=== PATIENT | male | born 1930 | race Caucasian/White ===

== ENCOUNTER 2017-04-02 16:21 | Emergency (ER) | payer OTHER, MEDICARE ==
[~2017-04-02 16:21] MED LIST: ALENDRONATE SOD70 M1 PO; ATOXIMETIN-B1 CAP PO; BACO TOP; BACTRIM1 TAB PO; BUPROPION75 MG PO; CELEXA10 MG PO; CITALOPRAM HYDR10 M1 PO; DIO80 PO; DIOVAN320 MG PO; ELITE MAGNESIUM1 TAB PO; FINASTERIDE5 M1 PO; FLAX SEED OIL1000 M1 PO; FLO4 PO; GLIPIZIDE ER10 MG PO; GLIPIZIDE10 MG PO; GLUCOSAMINE500 M2 PO; HIBICLENS118 ML TOP; HYDROCHLOROTH12.5 MG PO; LAC PO; LEVOFLOXACIN750 M1 PO; LOP600 PO; MAC100 PO; MACROBID100 MG PO; MACRODANTIN100 MG PO; NOR10 PO; OMEGA 3 120 MG-1 CAP PO; SIMVASTATIN20 M1 PO; STOOL SOFTENER100 M1 PO; TRE400 PO; TYLENOL ES500 MG PO; VYTORIN 10 MG-21 TAB PO; VYTORIN1 TA3 PO; [UNRECOGNIZED DRUG - OTHER] PO
[2017-04-02 17:42] LABS: BASOPHIL % 0.1 % (0-2); PLATELET COUNT 247 x10^3mcL (130-400); RED CELL DISTRIBUTION WIDTH 14.1 % (11.5-14.5)
[2017-04-02 17:52] LABS: CALCIUM 8.4 mg/dL (8.5-10.1); CARBON DIOXIDE 25.4 mmol/L (21-32); CHLORIDE SERUM 106 mmol/L (98-107); CREATININE SERUM 1.6 mg/dL (0.7-1.3); GLUCOSE SERUM 130 mg/dL (74-106); POTASSIUM SERUM 5.2 mmol/L (3.5-5.1); SODIUM SERUM 140 mmol/L (136-145)
[2017-04-02 17:53] LABS: ALKALINE PHOSPHATASE 65 U/L (46-116); ALT/SGPT 18 U/L (16-63); AST/SGOT 22 U/L (15-37); BILIRUBIN TOTAL 0.2 mg/dL (0.20-1.00); TOTAL PROTEIN, SERUM 6.3 g/dL (6.4-8.2)
[2017-04-02 17:56] LABS: ALBUMIN 2.9 g/dL (3.4-5.0); CHOLESTEROL 131 mg/dL (<200)
[2017-04-02 19:05] VITALS: BP 136/74
== END 2017-04-02 19:05 | disposition home or self-care (01) ==
LOC: ED 16:21
PROVIDERS: Specialist
DX: R53.1 Weakness (principal); N18.9 Chronic kidney disease, unspecified; E87.5 Hyperkalemia; M19.90 Unspecified osteoarthritis, unspecified site; E78.5 Hyperlipidemia, unspecified; M81.0 Age-related osteoporosis without current pathological fracture; Z88.0 Allergy status to penicillin
CPT/HCPCS: 83880; G0480; J7040; Q0092

== ENCOUNTER 2017-04-04 06:31 | Inpatient (IN) | payer OTHER, MEDICARE ==
[~2017-04-04] VITALS: Ht 177.8 cm; Wt 70.5 kg
[2017-04-04 07:35] LABS: BASOPHIL % 0.3 % (0-2); PLATELET COUNT 246 x10^3mcL (130-400); RED CELL DISTRIBUTION WIDTH 13.6 % (11.5-14.5)
[2017-04-04 07:59] LABS: CALCIUM 8.9 mg/dL (8.5-10.1); CARBON DIOXIDE 27.1 mmol/L (21-32); CHLORIDE SERUM 109 mmol/L (98-107); CREATININE SERUM 1.5 mg/dL (0.7-1.3); GLUCOSE SERUM 99 mg/dL (74-106); POTASSIUM SERUM 5.4 mmol/L (3.5-5.1); SODIUM SERUM 143 mmol/L (136-145)
[2017-04-04 08:13] LABS: ALKALINE PHOSPHATASE 60 U/L (46-116); ALT/SGPT 26 U/L (16-63); AST/SGOT 24 U/L (15-37); BILIRUBIN TOTAL 0.36 mg/dL (0.20-1.00); C REACTIVE PROTEIN 0.6 mg/dL (<=0.9); TOTAL PROTEIN, SERUM 6.8 g/dL (6.4-8.2)
[2017-04-04 08:15] LABS: FREE T4 0.94 ng/dL (0.76-1.46); FREE THYROXINE INDEX 2.2 ug/dL (1.4-4.5); T4(THYROXINE) 6.3 ug/dL (4.7-13.3)
[2017-04-04 08:18] LABS: CK-MB 1.8 ng/mL (0-3.6)
[2017-04-04 08:19] LABS: ALBUMIN 3.2 g/dL (3.4-5.0)
[2017-04-04 08:19] LABS: microscopic required? YES; urine erythrocyte 3+ (NEGATIVE)
[2017-04-04 08:27] LABS: AMPHETAMINE QUAL UR NONE DETECTED (NEG <=1000)
[2017-04-04 08:48] VITALS: BP 148/57
[2017-04-04 08:50] LABS: PHOSPHOROUS 2.8 mg/dL (2.5-4.9)
[2017-04-04 08:53] LABS: CHOLESTEROL/HDL RATIO 3.2; MAGNESIUM 1.8 mg/dL (1.8-2.4)
[2017-04-04 09:19] LABS: T3 TOTAL 0.89 ng/mL
[2017-04-04 10:58] LABS: ERYTHROCYTE SED RATE 41 mm/hr (0-20)
[2017-04-04 13:01] VITALS: BP 122/58
[2017-04-04 16:20] VITALS: BP 105/41
[2017-04-04 19:45] VITALS: BP 107/72
[2017-04-05 05:59] VITALS: BP 144/52
[2017-04-05 07:15] LABS: BASOPHIL % 0.4 % (0-2); PLATELET COUNT 269 x10^3mcL (130-400); RED CELL DISTRIBUTION WIDTH 14.4 % (11.5-14.5)
[2017-04-05 07:20] LABS: CALCIUM 8.9 mg/dL (8.5-10.1); CARBON DIOXIDE 27.9 mmol/L (21-32); CHLORIDE SERUM 108 mmol/L (98-107); CREATININE SERUM 1.6 mg/dL (0.7-1.3); GLUCOSE SERUM 99 mg/dL (74-106); SODIUM SERUM 143 mmol/L (136-145)
[2017-04-05 08:24] LABS: POTASSIUM SERUM 6.1 mmol/L (3.5-5.1)
[2017-04-05 11:17] VITALS: BP 124/54
[2017-04-05 13:19] VITALS: BP 107/45
[2017-04-05 18:36] VITALS: BP 107/45
[2017-04-05 18:45] VITALS: BP 135/59
[2017-04-05 19:44] VITALS: BP 106/52
[2017-04-06 05:57] LABS: BASOPHIL % 0.3 % (0-2); PLATELET COUNT 201 x10^3mcL (130-400)
[2017-04-06 06:07] VITALS: BP 118/52
[2017-04-06 06:17] LABS: CARBON DIOXIDE 22.7 mmol/L (21-32); CHLORIDE SERUM 110 mmol/L (98-107); CREATININE SERUM 1.3 mg/dL (0.7-1.3); GLUCOSE SERUM 78 mg/dL (74-106); MAGNESIUM 1.4 mg/dL (1.8-2.4); PHOSPHOROUS 3.8 mg/dL (2.5-4.9); POTASSIUM SERUM 4.4 mmol/L (3.5-5.1); SODIUM SERUM 142 mmol/L (136-145)
[2017-04-06 10:34] VITALS: BP 123/62
[2017-04-06] MEDS ORDERED: BACTRIM1 TAB PO (10:59)
[2017-04-06 13:34] VITALS: BP 125/60
[2017-04-06 14:32] VITALS: BP 125/60
== END 2017-04-06 15:35 | disposition home health service (06) | DRG 725 ==
LOC: ED 06:31 → DU 07:54 → MU 18:51 → DU 20:49
PROVIDERS: Specialist; ADMIT Family Medicine
DX: N40.1 Benign prostatic hyperplasia with lower urinary tract symptoms (principal); N17.0 Acute kidney failure with tubular necrosis; N13.8 Other obstructive and reflux uropathy; N39.0 Urinary tract infection, site not specified; I42.9 Cardiomyopathy, unspecified; E44.0 Moderate protein-calorie malnutrition; E11.65 Type 2 diabetes mellitus with hyperglycemia; K21.9 Gastro-esophageal reflux disease without esophagitis; F32.9 Major depressive disorder, single episode, unspecified; D64.9 Anemia, unspecified; M19.90 Unspecified osteoarthritis, unspecified site; E87.5 Hyperkalemia; E78.5 Hyperlipidemia, unspecified; N28.1 Cyst of kidney, acquired; Z68.24 Body mass index [BMI] 24.0-24.9, adult; M81.0 Age-related osteoporosis without current pathological fracture
CPT/HCPCS: 36600; 80307; 82962; 83880; 84439; J0696; J3475; J7030; Q0092

== ENCOUNTER 2017-04-23 14:05 | Emergency (ER) | payer OTHER, MEDICARE ==
[2017-04-23 16:33] LABS: CALCIUM 8.6 mg/dL (8.5-10.1); CHLORIDE SERUM 108 mmol/L (98-107); CREATININE SERUM 1.5 mg/dL (0.7-1.3); GLUCOSE SERUM 156 mg/dL (74-106); SODIUM SERUM 140 mmol/L (136-145)
[2017-04-23 16:39] LABS: POTASSIUM SERUM 5.8 mmol/L (3.5-5.1)
[2017-04-23 17:08] VITALS: BP 130/71
== END 2017-04-23 17:08 | disposition home or self-care (01) ==
LOC: ED 14:05
PROVIDERS: Emergency Medicine
DX: R31.9 Hematuria, unspecified (principal); E87.5 Hyperkalemia; I10 Essential (primary) hypertension; E11.9 Type 2 diabetes mellitus without complications; Z88.0 Allergy status to penicillin; Z79.899 Other long term (current) drug therapy

== ENCOUNTER 2017-05-02 04:50 | Inpatient (IN) | payer OTHER, MEDICARE ==
[~2017-05-02] VITALS: Ht 177.8 cm; Wt 81.6 kg
--- NOTE | 2017-05-02 05:02 | NUR ---
PT BIBA FOR LOWER ABD PAIN; PER MEDIC PT HAS CLARKE CATH AND HAS BEEN "LEAKY." MEDIC REPORTS PT HAS BEEN WEAK AND UNABLE TO WALK DUE TO WEAKNESS. PT HAS HX OF DM; BS CHECK ON SCENE WAS 141. PT AWAKE AND ALERT; RESP E/U; NAD NOTED. PT CAME FROM HOME
--- NOTE | 2017-05-02 05:07 | NUR ---
EKG IN PROGRESS
--- NOTE | 2017-05-02 05:16 | NUR ---
PT'S CLARKE VISIBLY LEAKING; WHITE DISCHARGE NOTED TO [facility]. [facility] PERFORMED ON PT WITH HELP OF RN RUSS AND EMT JOSUE. PT AWAKE ALERT; RESP E/U; NAD NOTED
--- NOTE | 2017-05-02 05:20 | NUR ---
PT'S LOWER ABD IS NOTED TO BE FIRM AND DISTENDED
--- NOTE | 2017-05-02 05:29 | NUR ---
PT MADE LARGE WATERY BM; BED SHEET CHANGED; DIAPER PLACED. [facility] PERFORMED
[2017-05-02 05:34] LABS: PLATELET COUNT 347 x10^3mcL (130-400)
--- NOTE | 2017-05-02 05:45 | NUR ---
OLD CLARKE REMOVED AND NEW ONE INSERTED; 400 ML OF CLEAR YELLOW URINE IN INITIAL OUTPUT. CLARKE BAG REPLACED WITH LEG BAG; ADDITIONAL 500 ML DRAINED AND EMPTIED FROM LEG BAG. PT TOLERATED WELL
[2017-05-02 05:48] LABS: ALKALINE PHOSPHATASE 66 U/L (46-116); ALT/SGPT 28 U/L (16-63); AMYLASE 57 U/L (25-115); AST/SGOT 27 U/L (15-37); BILIRUBIN TOTAL 0.48 mg/dL (0.20-1.00); CHLORIDE SERUM 102 mmol/L (98-107); CREATININE SERUM 2.8 mg/dL (0.7-1.3); GLUCOSE SERUM 150 mg/dL (74-106); LIPASE 279 IU/L (73-393); POTASSIUM SERUM 5.4 mmol/L (3.5-5.1); SODIUM SERUM 137 mmol/L (136-145); TOTAL PROTEIN, SERUM 7.1 g/dL (6.4-8.2)
--- NOTE | 2017-05-02 05:48 | NUR ---
PT'S ABD NO LONGER DISTENDED
[2017-05-02 05:50] LABS: ALBUMIN 2.9 g/dL (3.4-5.0)
[2017-05-02 06:00] LABS: CK-MB 2.6 ng/mL (0-3.6)
--- NOTE | 2017-05-02 06:01 | NUR ---
PT'S NOW AT BEDSIDE
[2017-05-02 06:02] LABS: BASOPHIL % 0 % (0-2); RED CELL DISTRIBUTION WIDTH 14.7 % (11.5-14.5)
--- NOTE | 2017-05-02 06:05 | NUR ---
PT'S NOW AT BEDSIDE. PER PT'S CLARKE HAD BEEN LEAKING FOR "ABOUT A WEEK AND A HALF." ALSO STS PT USUALLY IS ABLE TO WALK WITH WALKER BUT "LATELY" HAS NOT BEEN ABLE TO. WHEN ASKED IF PT HAS HX OF DEMENTIA, STATED "I THINK SO."
[2017-05-02 06:17] LABS: microscopic required? YES; urine erythrocyte 3+ (NEGATIVE)
--- NOTE | 2017-05-02 07:05 | NUR ---
CLARKE LEG BAG CHANGED; NEW BAG REPLACED; 400 ML URINE DRAINED
--- NOTE | 2017-05-02 07:38 | NUR ---
REPORT RECEIVED FROM DARRIAN NO; REPORT TO MADIE NO TO ASSUME CARE OF PT, PT TO BE TRANSFERRED TO ROOM 218B
--- NOTE | 2017-05-02 07:50 | NUR ---
Pt ARRIVED ON THE FLOOR.
--- NOTE | 2017-05-02 08:10 | NUR ---
A/O X3. CLEAR AND SLOW SPEECH. FOLLOW COMMANDS. ON TEL 28 SR HR 78. RADIAL PULSES PALPABLE. PEDAL PULSES WEAK. +3 PITTING EDEMA ON BLE. <3 SECS CAP REFILL. SCDS IN PLACED. ON RA SAT 96%. BREATHING EVEN AND UNLABORED. DIMINISHED LUNG SOUNDS. NO NVD THIS TIME. VOIDING ADEQUATELY. CLARKE INTACT AND SECURED. DRAINING TURBID YELLOW. Pt USES WALKER AND CANE AT HOME PER ELEONORA. NO SKIN TEAR OR OPEN WOUND. DENIES PAIN AT THIS TIME. IV SITE INTACT ON LEFT HAND. NS INFUSING WELL AT 100ML/HR. WILL CONTINUE TO MONITOR. CALL LIGHT WITHIN REACH.
[2017-05-02 08:17] VITALS: BP 107/48
[2017-05-02 08:30] LABS: MAGNESIUM 1.8 mg/dL (1.8-2.4)
[2017-05-02 08:31] LABS: CHOLESTEROL/HDL RATIO 2.2
[2017-05-02 08:31] LABS: AMPHETAMINE QUAL UR NONE DETECTED (NEG <=1000)
[2017-05-02 08:43] LABS: T3 TOTAL 0.66 ng/mL
[2017-05-02 09:43] VITALS: BP 107/48
--- NOTE | 2017-05-02 10:20 | NUR ---
PT VERY AGITATED AND RESTLESS, NEW ORDER RECIEVED FROM TO GIVE ATIVAN PRN. MADIE NO ASSIGNED TO THIS PT MADE AWARE OF ABOVE.
[2017-05-02 11:13] LABS: FREE T4 1.06 ng/dL (0.76-1.46); FREE THYROXINE INDEX 2.7 ug/dL (1.4-4.5); T4(THYROXINE) 7.1 ug/dL (4.7-13.3)
--- NOTE | 2017-05-02 11:28 | NUR ---
Pt SLEEPING AT THIS TIME. NO DISTRESS NOTED. WILL CONTINUE TO MONITOR.
[2017-05-02 13:54] VITALS: BP 90/38
--- NOTE | 2017-05-02 15:50 | NUR ---
SLEEPING AT THIS TIME. NO DISTRESS NOTED.
--- NOTE | 2017-05-02 16:45 | NUR ---
SPOKE TO DR SHIN REGARDING ORDER FOR Z GUARD FOR THE REDNESS AT THE GROIN AREA.
--- NOTE | 2017-05-02 17:52 | NUR ---
AT BEDSIDE FEEDING Pt THIS TIME. NO DISTRESS NOTED. WILL CONTINUE TO MONITOR.
[2017-05-02 18:02] VITALS: BP 102/50
--- NOTE | 2017-05-02 19:40 | NUR ---
PT RESTING IN BED WITH EYES CLOSED. REMAINS ON CONTACT PRECAUTIONS FOR HX OR MRSA. RESPONSIVE TO VERBAL AND TACTILE STIMULI. UNABLE TO STATE NAME. APPEARS DROWSY, BUT AROUSABLE. VERBAL WITH FEW WORDS WITH CLEAR SPEECH. NO S/S OF RESPIRATORY DISTRESS NOTED. LUNGS CLEAR BILATERALLY. BOWEL SOUNDS ACTIVE. ABD SOFT AND FLAT. IV TO LEFT HAND PATENT AND INTACT. IV INFUSING WELL. NO S/S OF INFECTION NOTED. SKIN WARM AND DRY. NOTED WITH 2+ EDEMA TO BLE. PULSES PALPABLE. SCDS IN PLACE. DENIES ANY PAIN AT THIS TIME. NO S/S OF DISTRESS OR DISCOMFORT NOTED. F/C DRAINING CLOUDY YELLOW URINE. CALL LIGHT WITHIN REACH. BED ALARM ON. WILL CONTINUE TO MONITOR.
--- NOTE | 2017-05-02 21:30 | NUR ---
RECEIVED CRITICAL LAB FOR BLOOD CULTURE GRAM STAIN - GRAM NEGATIVE BACILLI. DR. ATKINSON UPDATED AND AWARE.
[2017-05-02 21:44] VITALS: BP 90/45
--- NOTE | 2017-05-02 23:50 | NUR ---
PT RESTING IN BED WITH EYES CLOSED. BREATHING EQUAL AND UNLABORED. NO S/S OF RESPIRATORY DISTRESS NOTED. IV PATENT AND INFUSING WELL TO LEFT HAND. RESTING COMFORTABLY WITH RELAXED FACIAL FEATURES. CALL LIGHT WITHIN REACH. WILL CONTINUE TO MONITOR.
--- NOTE | 2017-05-03 01:15 | NUR ---
PT CALLING OUT. ARRIVED TO PT'S ROOM AND STATES, "I'M FEELING RESTLESS." PRN ATIVAN 1 MG IVP GIVEN. REPOSITIONED FOR COMFORT. DENIES ANY PAIN AT THIS TIME. CALL LIGHT WITHIN REACH. WILL CONTINUE TO MONITOR.
[2017-05-03 06:12] LABS: BASOPHIL % 0.1 % (0-2); PLATELET COUNT 267 x10^3mcL (130-400)
--- NOTE | 2017-05-03 06:22 | NUR ---
PT SLEPT INTERMITTENTLY THROUGHOUT THE NIGHT. HAD LOOSE BM X2. GOOD PERICARE RENDERED. F/C DRAINED 1200 CC CLOUDY URINE. IV PATENT AND INFUSING WELL. NO ADVERSE REACTIONS NOTED FROM IV ROCEPHIN. RECEIVED ROUTINE MEDICATIONS AND SWALLOWED WITHOUT DIFFICULTY. PT C/O PAIN TO LEFT HIP 07/09. PRN NORCO 7.5 MG PO GIVEN. REPOSITIONED FOR COMFORT. CALL LIGHT WITHIN REACH. WILL CONTINUE TO MONITOR.
[2017-05-03 06:28] VITALS: BP 115/82
[2017-05-03 06:36] LABS: CALCIUM 8.6 mg/dL (8.5-10.1); CARBON DIOXIDE 22.2 mmol/L (21-32); CHLORIDE SERUM 111 mmol/L (98-107); GLUCOSE SERUM 82 mg/dL (74-106); MAGNESIUM 1.9 mg/dL (1.8-2.4); PHOSPHOROUS 3.5 mg/dL (2.5-4.9); POTASSIUM SERUM 4.7 mmol/L (3.5-5.1); SODIUM SERUM 145 mmol/L (136-145)
--- NOTE | 2017-05-03 06:46 | NUR ---
RECEIVED CRITICAL LAB BUN 68.0. COPY OF CRITICAL LAB RESULT GIVEN TO DR. HDZ IN CLASSROOM.
[2017-05-03 07:19] LABS: RED CELL DISTRIBUTION WIDTH 15.1 % (11.5-14.5)
--- NOTE | 2017-05-03 07:50 | NUR ---
A/O X3 AT THIS TIME. PERIODS OF CONFUSION AND FORGETFULNESS BUT NONE AT THIS TIME. CLEAR AND SLOW SPEECH. FOLLOW COMMANDS. ON TEL 28 SR HR 72. RADIAL PULSES PALPABLE. PEDAL PULSES WEAK. +3 PITTING EDEMA ON BLE. <3 SECS CAP REFILL. SCDS IN PLACED. ON RA SAT 96%. BREATHING EVEN AND UNLABORED. DIMINISHED LUNG SOUNDS. NO NVD THIS TIME. VOIDING ADEQUATELY. CLARKE INTACT AND SECURED. DRAINING YELLOW OUTPUT. HAS REDNESS AT THE GROIN AREA. DENIES PAIN AT THIS TIME. IV SITE INTACT ON LEFT HAND. NS INFUSING WELL AT 100ML/HR. WILL CONTINUE TO MONITOR. CALL LIGHT WITHIN REACH.
--- NOTE | 2017-05-03 09:06 | NUR ---
TOOK MEDS WITHOUT DIFFICULTY. AT BEDSIDE. NO DISTRESS NOTED.
[2017-05-03 09:20] VITALS: BP 114/61
--- NOTE | 2017-05-03 09:33 | NUR ---
ALERT AND AWAKE. NO DISTRESS NOTED. WILL CONTINUE TO MONITOR.
--- NOTE | 2017-05-03 12:48 | NUR ---
ELEONORA AT BEDSIDE FEEDING Pt. TOLERATING DIET .
[2017-05-03 13:15] VITALS: BP 136/59
--- NOTE | 2017-05-03 14:36 | NUR ---
Pt STARTED TO BECOME AGITATED. ATIVAN 1MG IV GIVEN. WILL CONTINUE TO MONITOR .
[2017-05-03 17:05] VITALS: BP 133/63
--- NOTE | 2017-05-03 18:30 | NUR ---
IV SITE CHANGED TO LAC GAUGE 22. X1 ATTEMPT. Pt TOLERATED WELL.
--- NOTE | 2017-05-03 19:32 | NUR ---
A/O X3. PERIODS OF CONFUSION AND FORGETFULNESS BUT NONE AT THIS TIME. CLEAR AND SLOW SPEECH. FOLLOW COMMANDS. ON TEL 28 SR HR 84. RADIAL PULSES PALPABLE. PEDAL PULSES WEAK. +3 PITTING EDEMA ON BLE. <3 SECS CAP REFILL. SCDS IN PLACED. ON RA SAT 95%. BREATHING EVEN AND UNLABORED. DIMINISHED LUNG SOUNDS. NO NVD THIS TIME. VOIDING ADEQUATELY. CLARKE INTACT AND SECURED. DRAINING YELLOW OUTPUT. HAS REDNESS AT THE GROIN AREA Z GUARD APPLIED. DENIES PAIN AT THIS TIME. IV SITE INTACT ON LEFT HAND. NS INFUSING WELL AT 100ML/HR. WILL CONTINUE TO MONITOR. CALL LIGHT WITHIN REACH.
--- NOTE | 2017-05-03 20:30 | NUR ---
SPOKE TO DR ATKINSON REGARDING POSITIVE MRSA NARES.
[2017-05-03 21:24] VITALS: BP 122/61
--- NOTE | 2017-05-03 23:10 | NUR ---
RECEIVED A REPORT FROM RN MADIE, SEEN PATIENT AWAKE, CONFUSED, DOES NOT KNOW WHERE HE AT, DOES NOT REMMEMBER HIS BIRHTDAY STS " I DON'T KNOW" MOANING AT TIMES. REORIENTATION PROVIDED. NO RESP DISTRESS NOTED ON ROOM AIR. IVF NS TO LFA INFUSING WELL AT 100ML/HR. GEN BODY WEAKNESS, WILL CONTINUE TO REPOSITION Q 2HRS. CLARKE CATH DRAINING OUT YELLOW URINE COLORED. SCD TO BLE MAINTAINED. FALL PRECAUTION AND CONTACT ISOLATION MAINTAINED.
--- NOTE | 2017-05-04 00:02 | NUR ---
HEARD PATIENT MOANING AND SCREMAING OUT LOUD STS HIS LEFT HIP HURTING. MORPHINE 2MG IVP SLOWLY GIVEN, NO ADVERSE REACTION NOTED. WILL CONTINUE TO MONITOR.
[2017-05-04 05:39] VITALS: BP 115/58
--- NOTE | 2017-05-04 06:00 | NUR ---
NO SIGNS OF RESP DISTRESS THROUGHOUT SHIFT. VSS. MORPHINE 2MG WAS GIVEN X1 FOR LEFT HIP PAIN AREA WITH GOOD RELIEF. REMAINS CONFUSED. CLARKE CATH DRAINING OUT YELLOW URINE COLORED 2,000ML OUTPUT. REPOSITIONED Q 2HRS PERFORMED. DUE ABX-ROCEPHIN GIVEN. IVF NS CONTINUED AT 100ML/HR.
[2017-05-04 07:31] LABS: CALCIUM 7.8 mg/dL (8.5-10.1); CARBON DIOXIDE 22.9 mmol/L (21-32); CHLORIDE SERUM 110 mmol/L (98-107); CREATININE SERUM 1.5 mg/dL (0.7-1.3); GLUCOSE SERUM 155 mg/dL (74-106); MAGNESIUM 1.3 mg/dL (1.8-2.4); PHOSPHOROUS 2.8 mg/dL (2.5-4.9); POTASSIUM SERUM 3.7 mmol/L (3.5-5.1); SODIUM SERUM 143 mmol/L (136-145)
[2017-05-04 07:34] LABS: PLATELET COUNT 229 x10^3mcL (130-400)
[2017-05-04 07:37] LABS: BASOPHIL % 0 % (0-2)
--- NOTE | 2017-05-04 07:45 | NUR ---
RECEIVED THE PATIENT AWAKE, AND ORIENTED TO PERSON AND PLACE WITH EPISODES OF CONFUSION. PATIENT DENIED SHORTNESS OF BREATH OR PAIN WHILE RESTING IN BED. HOWEVER, PATIENT C/O LEFT HIP AND LOWERE BACK PAIN WITH FAST MOVEMENT. IVF NS VIA H/L TO LFA. TELE # 28 READS SINUS RHYTHMS. F/C TO GRAVITY DRAINING YELLOW URINE. CALL LIGHT WITHIN REACH. SIDE RAILS UP X3. BED WAS AT LOWEST POSITION AND ALARM WAS ON.
--- NOTE | 2017-05-04 09:20 | NUR ---
DR. DESOUZA AND THE TEAM WERE MAKING ROUND TO SEE THE PATIENT. THE CARE PLAN WAS DISCUSSED WITH THE PATIENT'S AT BEDSIDE, AND SHE AGREED WITH THE PLAN.
[2017-05-04 09:48] VITALS: BP 139/58
--- NOTE | 2017-05-04 11:18 | NUR ---
AIR MATTRESS WAS SET UP FOR THE PATIENT.
--- NOTE | 2017-05-04 11:24 | NUR ---
THE PATIENT WAS TAKEN TO RAD DEPT FOR CT HEAD.
--- NOTE | 2017-05-04 11:45 | NUR ---
THE PATIENT CAME BACK TO THE ROOM.
--- NOTE | 2017-05-04 13:16 | NUR ---
Nutrition Note RN called RD regarding diet textures for pt. RN stated that family requested for softer textures for pt as pt's dentures does not fit him anymore, and do require soft foods in order for pt to be able to eat. RD met up with family at bedside, family stated that pt likes foods like mashed potatoes, soft textured vegetables, pudding, rice. Family also stated that they do not want pt to have baby food. RD explained in length with family that soft diet texture does require some chewing especially with meats, family agreeable with soft textured diet with pureed meats for pt to enable pt to eat better. RD acknowledged, informed RN, informed [facility] staff, paged regarding recommendations. RD recommend pt to be on Mechanical Soft, Chopped diet with Pureed meats at this time. RD to follow up per nutrition care policy and standards.
[2017-05-04 14:12] VITALS: BP 117/51
--- NOTE | 2017-05-04 14:30 | NUR ---
DR. VASQUEZ-RESIDENT WAS NOTIFIED THAT THE PATIENT'S HAD EPISODE OF 12 BEAT V-TACH; THE PATIENT WAS ASYMPTOMATIC WITH BP 118/55, HR 80. AWAITING FOR NEW ORDER.
[2017-05-04 17:51] VITALS: BP 131/65
--- NOTE | 2017-05-04 18:40 | NUR ---
THE PATIENT WAS RESTING IN BED WITHOUT DISTRESS AFTER HAVING DINNER. PATIENT WITH EPISODES OF CONFUSION. BED WAS AT LOWEST POSITION AND ALARM WAS ON.
--- NOTE | 2017-05-04 19:40 | NUR ---
RECEIVED Pt AAOX2 CALM AND COOPERATIVE. DENIES ANY CHEST PAIN. LUNG SOUNDS ARE CTA BILATERALLY. ACTIVE BOWEL SOUNDS X4 QUADS. IV SITE TO LFA IS PATENT. BLANCHABLE REDNESS TO COCCYX. AIR MATTRESS IN PLACE. CLARKE CATH PATENT DRAINING YELLOW URINE TO GRAVITY. RADIAL AND PEDAL PULSES ARE PRESENT. MOVES ALL EXTREMITIES, TRACE EDEMA NOTED TO BLE. SCD'S IN PLACE. RE-ORIENTED TO ROOM AND CALL LIGHT SYSTEM WITHIN EASY REACH. WILL CONTINUE TO MONITOR.
[2017-05-04 21:46] VITALS: BP 123/90
--- NOTE | 2017-05-04 22:14 | NUR ---
PHYSICAL THERAPY AM NOTES EVAL COMPLETED - PLEASE SEE EVAL FORM IN SEPARATE SHEET FOR MORE INFORMATION.CHRISTA LUNA
--- NOTE | 2017-05-05 00:04 | NUR ---
Pt RESTING COMFORTABLY. CALL LIGHT WITHIN REACH. WILL CONTINUE TO MONITOR.
[2017-05-05 01:46] VITALS: Ht 177.8 cm; Wt 81.6 kg
[2017-05-05 05:51] VITALS: BP 121/46
--- NOTE | 2017-05-05 05:52 | NUR ---
NO SIGNIFICANT CHANGES NOTED OVER NIGHT. Pt MEDICATED FOR LOW BACK PAIN X1, SLEPT ON AND OFF. CLARKE CATH PATENT. SAFETY AND COMFORT MEASURES REMAIN IN PLACE. WILL CONTINUE TO MONITOR.
--- NOTE | 2017-05-05 06:31 | NUR ---
22 G IV SITE TO RW.
--- NOTE | 2017-05-05 07:25 | NUR ---
RESUME CARE: PATIENT AWAKE AND ORIENTED TO PERSON, PLACE AND WITH SOME FORGETFULNESS. PATIENT STATED FEELING BETTER TODAY AND DENIED PAIN WHILE RESTING IN BED. IVF NS VIA H/L TO RIGHT WRIST. TELE # 28 READ SINUS RHYTHMS. PATIENT WAS ON AIR MATTRESS. CALL LIGHT WITHIN REACH. SIDE RAILS UP X3. BED WAS AT LOWEST POSITION AND ALARM WAS ON. CONTACT ISOLATION MAINTAINED.
--- NOTE | 2017-05-05 09:50 | NUR ---
DR. DESOUZA AND THE TEAM WERE MAKING ROUND TO SEE THE PATIENT. THE CARE PLAN WAS EXPLAINED TO THE PATIENT AND HIS , ELEONORA AT BEDSIDE; BOTH VERBALIZED UNDERSTANDING.
[2017-05-05 09:56] VITALS: BP 138/70
[2017-05-05 10:14] LABS: BASOPHIL % 0.1 % (0-2); PLATELET COUNT 187 x10^3mcL (130-400)
[2017-05-05 10:38] LABS: RED CELL DISTRIBUTION WIDTH 14.8 % (11.5-14.5)
[2017-05-05 10:51] LABS: CALCIUM 7.9 mg/dL (8.5-10.1); CHLORIDE SERUM 107 mmol/L (98-107); CREATININE SERUM 1.4 mg/dL (0.7-1.3); GLUCOSE SERUM 152 mg/dL (74-106); MAGNESIUM 1.5 mg/dL (1.8-2.4); PHOSPHOROUS 2.7 mg/dL (2.5-4.9); POTASSIUM SERUM 4.1 mmol/L (3.5-5.1); SODIUM SERUM 142 mmol/L (136-145)
[2017-05-05 18:48] VITALS: BP 135/68
--- NOTE | 2017-05-05 18:49 | NUR ---
PATIENT WAS SLEEPING IN BED AFTER TAKING NORCO 1 TAB FOR PAIN AT 1757 PM AFTER HE HAD DINNER.
--- NOTE | 2017-05-05 19:50 | NUR ---
RECEIVED REPORT FROM DAY SHIFT RN. PT RESTING IN BED COMFORTABLY. C/O HEADACHE, WILL MEDICATE PER ORDER. IV ON RIGHT WRIST, NS INFUSING. ON AIR MATTRESS. CLARKE IN PLACE, DRAINING YELLOW COLORED URINE. BED IN LOWEST POSITION. SIDE RAILS UP X3. INSTRUCTED PT TO CALL IF ASSISTANCE IS NEEDED. CALL LIGHT WITHIN REACH.
[2017-05-05 21:45] VITALS: BP 149/73
[2017-05-06 05:15] VITALS: BP 140/58
--- NOTE | 2017-05-06 05:36 | NUR ---
PT SLEPT ON AND OFF DURING SHIFT. C/O HEADACHE X1, MEDICATED WITH TYLENOL. SAFETY MEASURES MAINTAINED. ALL NEEDS ATTENDED TO. INSTRUCTED PT TO CALL IF ASSISTANCE IS NEEDED. CALL LIGHT WITHIN REACH. WILL ENDORSE CONTINUITY OF CARE TO ONCOMING RN.
[2017-05-06 06:14] LABS: PLATELET COUNT 185 x10^3mcL (130-400); RED CELL DISTRIBUTION WIDTH 14.3 % (11.5-14.5)
[2017-05-06 06:44] LABS: CHLORIDE SERUM 108 mmol/L (98-107); CREATININE SERUM 1.4 mg/dL (0.7-1.3); GLUCOSE SERUM 124 mg/dL (74-106); MAGNESIUM 1.9 mg/dL (1.8-2.4); PHOSPHOROUS 3.1 mg/dL (2.5-4.9); SODIUM SERUM 141 mmol/L (136-145)
[2017-05-06 06:49] LABS: BASOPHIL % 0 % (0-2)
--- NOTE | 2017-05-06 07:30 | NUR ---
A/O X3. PERIODS OF CONFUSION AND FORGETFULNESS BUT NONE AT THIS TIME. CLEAR AND SLOW SPEECH. FOLLOW COMMANDS. ON MEDSURG HR 71. RADIAL PULSES PALPABLE. PEDAL PULSES WEAK. +3 PITTING EDEMA ON BLE. <3 SECS CAP REFILL. SCDS IN PLACED. ON RA SAT 95%. BREATHING EVEN AND UNLABORED. DIMINISHED LUNG SOUNDS. NO NVD THIS TIME. VOIDING ADEQUATELY. CLARKE INTACT AND SECURED. DRAINING YELLOW OUTPUT. HAS REDNESS AT THE BUTTOCK AND GROIN AREA Z GUARD APPLIED. DENIES PAIN AT THIS TIME. IV SITE INTACT ON LEFT HAND. NS INFUSING WELL AT 100ML/HR. WILL CONTINUE TO MONITOR. CALL LIGHT WITHIN REACH.
--- NOTE | 2017-05-06 07:30 | NUR ---
A/O X3 WITH PERIODS OF FORGETFULNESS AND CONFUSION. ON MEDSURG HR 71. RADIAL AND PEDAL PULSES PALPABLE. TRACE PRABHJOT HANDS AND FEETS. SCDS IN PLACED. ON RA SAT 97%. BREATHING EVEN AND UNLABORED. NO NVD. VOIDNIG ADEQUATELY. CLARKE INTACT AND SECURED. DRAINING YELLOW OUTPUT. HAS GENERALIZED WEAKNESS. NEEDS ASSIST WITH ADLS. REDNESS AT BUTTOCKS AND GROING AREA. DENIES PAIN THIS TIME. IV SITE INTACT RIGHT WRIST. NS INFUSING WELL AT 100 ML/HR. WILL CONTINUE TO MONITOR.
--- NOTE | 2017-05-06 08:53 | NUR ---
TOOK MEDS WITHOUT DIFFICULTY. AT BEDSIDE. NO DISTRESS NOTED. WILL CONTINUE TO MONITOR.
[2017-05-06 10:16] VITALS: BP 146/68
--- NOTE | 2017-05-06 11:09 | NUR ---
Pt REQUESTED FOR TYLENOL FOR HEADACHE. TYLENOL GIVEN.
--- NOTE | 2017-05-06 12:30 | NUR ---
SLEEPING AT THIS TIME. NO DISTRESS NOTED. AT BEDSIDE.
--- NOTE | 2017-05-06 14:59 | NUR ---
PHYSICAL THERAPY DAILY NOTES CO-SIGN All documentation done by the Pantry Cook for 05/06/17 has been reviewed. I agree with the documentation. Reviewed/Co-Signed by: Darshan Sánchez PT Documentation Done by: Marlon Steen TELEGRAPH LINEMAN Pt continues to present with weakness and easy mm fatigability.
--- NOTE | 2017-05-06 15:52 | NUR ---
Pt BECOMING ANXIOUS. IV ATIVAN GIVEN. AT BEDSIDE.
--- NOTE | 2017-05-06 15:57 | NUR ---
Initial Nutrition Assessment Dx: Renal Failure, Bladder Mass PMHx: GERD, osteoporosis, HLD, HTN, BPH, anxiety, dementia, colon surgery, cholecystectomy PSHx: Cholecystectomy, colon surgery Labs: BG 124 H, BUN 26 H, Cr 1.4 H, H/H 10/31 L; (05/02) ALB 2.9 L, A1C 5.9 Meds: Ativan, Colace, D10, humulin R, lactinex, mag-ox, Prilosec, NS IV, theragran, zofran Current Diet Order: Mechanical Soft, Chopped, CCHO-60 gm diet, Pureed Meats PO Intakes: (05/04) B: 80%, L: 70%, D: 60%; (05/05) B: 80%, L: 80%, D: 100%; (05/06) B: 80% Ht: 70", 5' 10". Wt: 180 lb, 82 kg. BMI: 25.8 kg/m2 (Overweight) IBW: 166 lb, 75 kg. %IBW: 109%. UBW: 180 lb, 82 kg Age: 86 Y/O M Food Allergies: None Skin: Redness to buttocks and groin area. Shay 15. No pressure injuries noted. Edema: 3+ BLE GI: Last BM 05/04. 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 Per doctor's progress note 05/06, [facility] hospice met with pt and yesterday, plan for [facility] for hospice 05/07/17, continue PT and ABX, no acute events overnight. Per [facility] Huddle reports, discharge to SNF on ABX and hospice. Pt was seen awake, lethargic, at bedside during RD visit. participated in RD verbal interview. reported that food textures is good, pt tolerating diet well with good PO intakes so far. also stated that pt was able to put in his dentures for the past 2 days and able to chew well too. also stated that pt will be discharged with hospice tomorrow. Noted that per prior RD note 05/04, agreeable for pt to have Mechanical Soft, Chopped food textures with pureed meats. Problem with: N: None. V: None. D: None. C: None. Problems with: Chewing: Yes. No teeth, has dentures, but painful at times. Swallowing: None. Current Appetite: Good Recent Weight Change: None. % Weight Change: N/A Vitamin/Supplement use: None Diet at Home: Soft textured foods per Physical Activity: Bed bound mostly Education: RD provided education on food textures to on prior visit 05/04/17 Estimated Nutritional Needs Based CBW 180 lb, 82 kg. Energy: 7984-5396 kcal/day (25-30 kcal/kg for Geriatric Maintenance) Protein: 82-98 gm/day (1-1.2 gm/kg for Repletion) Fluids: 2050 ml/day (25 ml/kg for Geriatric Maintenance) or per doctor Nutrition Diagnosis No nutrition problem at this time Intervention 1. Continue Mechanical Soft, Chopped, CCHO-60 gm diet, Pureed Meats per doctor. Monitor/Evaluate Goal: PO intakes to meet >75% of estimated needs with tolerance Monitor: PO intakes, tolerance to diet, labs, skin integrity, GI function, weights F/U in 7 days as LOW risk (05/13)
[2017-05-06 17:06] VITALS: BP 107/56
--- NOTE | 2017-05-06 17:10 | NUR ---
SLEEPING UPON ENTERING ROOM. AT BEDSIDE. NO DISTRESS NOTED.
--- NOTE | 2017-05-06 18:18 | NUR ---
SLEEPING COMFORTABLY. NO DISTRESS NOTED.
--- NOTE | 2017-05-06 19:40 | NUR ---
RECEIVED PT FROM PREVIOUS SHIFT NURSE. PT RESTING IN BED. RR EVEN AND UNLABORED. NO ACUTE DISTRESS NOTED. PT EASILY AROUSABLE. MED SURG PT. DENIES CP/PRESSURE. WEAK PEDAL PULSES, TRACE PRABHJOT HAND AND FEET EDEMA NOTED. LUNG SOUNDS CLEAR, ON RA. DENIES SOB/ DIFFICULTY BREATHING. BOWEL SOUNDS ACTIVE. CLARKE IN PLACE, YELLOW OUTPUT NOTED. GENERALIZED WEAKNESS. AIR MATTRESS IN PLACE. SKIN INTACT, SLIGHT REDNESS TO BUTTOCKS AND COCCYX WITH ZGUARD IN PLACE. IV IN R. WRIST, INTACT AND PATENT. BED IN LOWEST POSITION. CALL LIGHT WTIHIN REACH. WILL CONTINUE TO MONITOR.
[2017-05-06 21:59] VITALS: BP 139/62
--- NOTE | 2017-05-07 01:10 | NUR ---
PT RESTING IN BED. RR EVEN AND UNLABORED. NO ACUTE DISTRESS NOTED. IV INTACT AND PATENT. BED IN LOWEST POSITION. CALL LIGHT WITHIN REACH. WILL CONTINUE TO MONITOR.
--- NOTE | 2017-05-07 05:16 | NUR ---
PT SLEPT INTERMITTENTLY THROUGH NIGHT. FREQUENTLY REPOSITIONED FOR COMFORT. NO ACUTE DISTRESS NOTED. BED IN LOWEST POSITION. CALL LIGHT WITHIN REACH. WILL CONTINUE TO MONITOR.
[2017-05-07 06:01] VITALS: BP 144/63
[2017-05-07 07:21] LABS: BASOPHIL % 0.3 % (0-2); PLATELET COUNT 217 x10^3mcL (130-400); RED CELL DISTRIBUTION WIDTH 14.7 % (11.5-14.5)
[2017-05-07 07:24] LABS: POTASSIUM SERUM 3.9 mmol/L (3.5-5.1); SODIUM SERUM 144 mmol/L (136-145)
[2017-05-07 07:25] LABS: CARBON DIOXIDE 25.5 mmol/L (21-32); CHLORIDE SERUM 110 mmol/L (98-107); CREATININE SERUM 1.1 mg/dL (0.7-1.3); GLUCOSE SERUM 146 mg/dL (74-106)
--- NOTE | 2017-05-07 07:34 | NUR ---
A/O X3 WITH PERIODS OF FORGETFULNESS AND CONFUSION. ON MEDSURG HR 70. RADIAL AND PEDAL PULSES PALPABLE. TRACE PRABHJOT HANDS AND FEETS. SCDS IN PLACED. ON RA SAT 96%. BREATHING EVEN AND UNLABORED. NO NVD. VOIDNIG ADEQUATELY. CLARKE INTACT AND SECURED. DRAINING YELLOW OUTPUT. HAS GENERALIZED WEAKNESS. NEEDS ASSIST WITH ADLS. REDNESS AT BUTTOCKS AND GROING AREA. DENIES PAIN THIS TIME. IV SITE INTACT RIGHT WRIST. NS INFUSING WELL AT 100 ML/HR. WILL CONTINUE TO MONITOR.
--- NOTE | 2017-05-07 08:13 | NUR ---
TOOK MEDS WITHOUT DIFFICULTY. AT BEDSIDE FEEDING Pt THIS TIME. NO DISTRESS NOTED. WILL CONTINUE TO MONITOR.
[2017-05-07 09:37] VITALS: BP 147/71
--- NOTE | 2017-05-07 09:45 | NUR ---
HOSPICE NURSE AT BEDSIDE.
[2017-05-07] MEDS ORDERED: ROC1I IV (09:53)
[2017-05-07] MEDS ORDERED: ALENDRONATE SOD70 M2 (10:27)
[2017-05-07 10:34] VITALS: BP 147/71
--- NOTE | 2017-05-07 13:36 | NUR ---
PT NOTES TIME 1315 PVE (1) CHART REVIEWED AND CLEARED FOR PT BY NURSINGMADIE. RECEIVED PT IN BED WITH PRESENT. PATIENT STATES, "I WILL BE LEAVING IN A HOUR AND A HALF OR SO AND WOULD NOT WANT TO PARTICIPATE WITH THERAPY FOR TODAY." ALSO AGREED WITH PATIENT. EDUCATED PATIENT AND THE IMPORTANCE OF OOB ACTIVITIES, DAILY THER EX, AND TO PARTICIPATE WITH PHYSICAL THERAPY WITH PT AND HAVING A GOOD UNDERSTANDING. NOTIFIED NURSING OF PATIENT NOT PARTICIPATING WITH THERAPY TODAY. NURSING STATES, "PT WILL TRANSFER TO A SNF FOR HOSPICE CARE."
[2017-05-07 13:59] VITALS: BP 134/62
--- NOTE | 2017-05-07 15:28 | NUR ---
Pt BEING TRANSPORTED TO [facility] VIA [facility].
== END 2017-05-07 15:40 | DRG 686 ==
LOC: ED 04:50 → DU 06:27 → MU 05-05 10:48
PROVIDERS: Emergency Medicine; ADMIT Family Medicine
DX: D49.4 Neoplasm of unspecified behavior of bladder (principal); N17.0 Acute kidney failure with tubular necrosis; N39.0 Urinary tract infection, site not specified; E44.0 Moderate protein-calorie malnutrition; R78.81 Bacteremia; E11.51 Type 2 diabetes mellitus with diabetic peripheral angiopathy without gangrene; E83.42 Hypomagnesemia; F32.9 Major depressive disorder, single episode, unspecified; N40.1 Benign prostatic hyperplasia with lower urinary tract symptoms; R33.8 Other retention of urine; E87.5 Hyperkalemia; M62.50 Muscle wasting and atrophy, not elsewhere classified, unspecified site; E87.8 Other disorders of electrolyte and fluid balance, not elsewhere classified; D64.9 Anemia, unspecified; I10 Essential (primary) hypertension; Z16.24 Resistance to multiple antibiotics; Z68.25 Body mass index [BMI] 25.0-25.9, adult; Z87.891 Personal history of nicotine dependence; Z22.322 Carrier or suspected carrier of Methicillin resistant Staphylococcus aureus; B96.89 Other specified bacterial agents as the cause of diseases classified elsewhere
CPT/HCPCS: 82962; 84439; 97110-GP; 97116-GP; 97530-GP; J0696; J2060; J2270; J3010; J3475; J7030; Q0092